=== PATIENT | male | born 1985 | race Caucasian/White ===

== ENCOUNTER → 2020-04-17 12:24 | Outpatient (CLI) | payer MEDICARE, OTHER, SELFPAY | PROVIDERS: PCP Nurse Practitioner Family; Visit Provider Nurse Practitioner Family | DX: Z03.818 Encounter for observation for suspected exposure to other biological agents ruled out (principal) | CPT/HCPCS: U0003 ==

== ENCOUNTER → 2021-04-20 14:26 | Outpatient (CLI) | payer MEDICARE, OTHER, SELFPAY | PROVIDERS: PCP Nurse Practitioner Family; Visit Provider Nurse Practitioner | DX: Z20.822 Contact with and (suspected) exposure to COVID-19 (principal) | CPT/HCPCS: C9803; U0003; U0005 ==

== ENCOUNTER → 2021-05-10 12:05 | Outpatient (CLI) | payer MEDICARE, OTHER, SELFPAY | PROVIDERS: Visit Provider Ophthalmology | DX: Z01.812 Encounter for preprocedural laboratory examination (principal); Z11.52 Encounter for screening for COVID-19 | CPT/HCPCS: C9803; U0003; U0005 ==

== ENCOUNTER 2021-05-11 07:38 | Day surgery (SDC) | payer MEDICARE, OTHER, SELFPAY ==
[2021-05-10 11:18] VITALS: BMI 40.7
[2021-05-11 08:03] VITALS: BP 146/91; PULSE 91; RESP 18; TEMP 36.2; O2SAT 94
[2021-05-11 10:08] VITALS: BP 175/81; PULSE 90; RESP 18; O2SAT 94
[2021-05-11 10:13] VITALS: BP 175/86; PULSE 88; RESP 18; O2SAT 94
[2021-05-11 10:18] VITALS: BP 163/91; PULSE 89; RESP 18; O2SAT 94
[2021-05-11 10:23] VITALS: BP 163/84; PULSE 88; RESP 18; O2SAT 94
[2021-05-11 10:25] VITALS: BP 146/87; PULSE 98; RESP 16; TEMP 36.7; O2SAT 94
[2022-02-24 10:55] LABS: POC Glucose,Bedside 259 (70-110)
== END 2021-05-11 10:33 | disposition home or self-care (01) ==
LOC: OR 07:41
PROVIDERS: PCP Nurse Practitioner Family; Visit Provider Ophthalmology
DX: H25.811 Combined forms of age-related cataract, right eye (principal); E11.9 Type 2 diabetes mellitus without complications; Z79.4 Long term (current) use of insulin; Z79.84 Long term (current) use of oral hypoglycemic drugs; Z79.899 Other long term (current) drug therapy
CPT/HCPCS: 66984; 82962; V2632

== ENCOUNTER → 2021-05-27 11:35 | Outpatient (CLI) | payer MEDICARE, OTHER, SELFPAY | PROVIDERS: Visit Provider Nurse Practitioner | DX: Z20.822 Contact with and (suspected) exposure to COVID-19 (principal) | CPT/HCPCS: C9803; U0003; U0005 ==

== ENCOUNTER 2022-05-10 10:12 | Emergency (ER) | payer MEDICARE, OTHER, SELFPAY ==
[2022-05-10] VITALS (12 sets, daily range): BP systolic 137–167; BP diastolic 78–97; PULSE 83–94; RESP 15–20; TEMP 36.8; O2SAT 94–97; BMI 29.0
--- NOTE | 2022-05-10 10:09 | ECG_ITS ---
APPROVED REPORT Exam: Resting ECG HR:92 bpm ECG Measurements Heart Rate 92 AXES LA 143 P 74 QRSd 98 QRS 34 QT 344 T 53 QTc 394 Conclusion SINUS RHYTHM NORMAL ECG UNCONFIRMED REPORT Electronically signed by : Jeffry Villarreal MD 05/10/2022 19:53:51
--- NOTE | 2022-05-10 10:24 | XR_ITS ---
FINAL REPORT TECHNIQUE: Chest PA & Lateral CLINICAL HISTORY: chest pain FINDINGS: 2 views of the chest were performed. The heart size is normal. The mediastinum is within normal limits. There is a 23 mm nodule in the left lung base. There is mild left pleural thickening. There are no pleural effusions. There is no pneumothorax. The bony thorax appears intact. IMPRESSION: 23 mm nodule in the left lung base. Uncertain if this is calcified. Recommend chest CT. Reviewed, Interpreted and Dictated by Akhil Valle III, MD Transcribed by Jewel Coker Authenticated and [facility]
[2022-05-10 10:41] LABS: Basophils # 0.1 K/mm3 (0-0.2); Basophils % 0.8 % (0.1-2.0); Chloride 104 mmol/L (98-107); Eosinophils # 0.2 K/mm3 (0.0-0.4); Eosinophils % 3.3 % (0.1-12.0); Hematocrit 45.6 % (42.0-52.0); Hemoglobin 16.2 g/dL (14.1-18.0); Lymphocytes # 1.4 K/mm3 (0.7-4.5); Lymphocytes % 18.8 % (10-50); Mean Corpuscular HGB Conc 35.4 g/dL (31.8-35.4); Mean Corpuscular Hemoglobin 31.4 pg (27.0-31.2); Mean Corpuscular Volume 88.8 fl (80-94); Mean Platelet Volume 7.8 fl (7.4-10.4); Monocytes # 0.4 K/mm3 (0.1-1.0); Monocytes % 4.9 % (1.7-9.3); Neutrophils # 5.4 K/mm3 (1.8-7.8); Neutrophils % 72.2 % (37.0-80.0); Platelet Count 218 K/mm3 (142-424); Red Blood Count 5.14 M/mm3 (4.60-6.20); Red Cell Distribution Width 13.8 % (11.5-17.5); White Blood Count 7.5 K/mm3 (4.8-10.8)
[2022-05-10 10:42] LABS: Potassium 3.8 mmoL/L (3.5-5.1); Sodium 136 mmol/L (136-145)
[2022-05-10 10:45] LABS: Anion Gap 8.8 mEq/L (5-15); Blood Urea Nitrogen 13 mg/dl (9-20); Carbon Dioxide 27 mmol/L (22.0-30.0); Creatinine Clearance Estimated 119 mL/min (50-200); Estimated Glomerular Filt Rate 84 ml/min (>60); GFR (African American) 101 ML/MIN (>60); Glucose 294 mg/dl (74-100)
--- NOTE | 2022-05-10 11:02 | CT_ITS ---
FINAL REPORT TECHNIQUE: Thin section axial CT images were obtained from the lung apices to the upper abdomen. IV contrast was administered. MIP 3-D reformats were obtained. This study was performed with techniques to keep radiation doses as low as reasonably achievable (ALARA). Individualized dose reduction techniques using automated exposure control or adjustment of mA and/or kV according to the patient's size were employed. CLINICAL HISTORY: Mass on CXR, CP, soa, former smoker of 22 years(quit 4 months ago) FINDINGS: The heart size is normal. There is no adenopathy. There is no filling defect to suggest PE. There is no aortic dissection. There is no pericardial effusion. There is left pleural thickening. There is abnormal soft tissue in the left lower thorax measuring up to 4.6 cm of uncertain etiology. Favor this to represent scarring. There is a 26 mm lobular nodule in the inferior lingula that is not calcified. Neoplasm cannot be excluded. There are mild bilateral pulmonary ground-glass opacities that could represent edema or alveolitis. No pleural effusion. Limited images of the upper abdomen demonstrate a 6 mm increased attenuation focus in the medial left hepatic lobe that is nonspecific. There is mild fatty infiltration of the liver. Postoperative changes are seen from cholecystectomy. IMPRESSION: Noncalcified 26 mm lobular nodule in the inferior lingula. Neoplasm cannot be excluded. Recommend PET-CT. Mild bilateral pulmonary ground-glass opacities could represent edema or alveolitis. Abnormal soft tissue in the left lower thorax favors scarring. Reviewed, Interpreted and Dictated by Akhil Valle III, MD Transcribed by Jewel Coker Authenticated and [facility]
[2022-05-10 11:03] LABS: Troponin I < 0.01 ng/ml (0.00-0.034)
--- NOTE | 2022-05-10 11:03 | HMH.EDGENADL ---
Discharge Plan Disposition Patient Disposition: Home, Self-Care Condition: Good Prescriptions Prescriptions: New azithromycin [Zithromax Z-Luis] 250 mg tablet See Rx Instructions PO .COMPLEX Qty: 6 0RF Rx Instructions: For 250 mg dose pack: take 500 mg today (day 1), then 250 mg for 4 days (days 2-5) No Action pravastatin 40 MG tablet 40 mg PO HS divalproex 500 MG tablet,delayed release (DR/EC) 500 mg PO BID citalopram 20 MG tablet 20 mg PO DAILY metformin 1,000 MG tablet 1,000 mg PO BID topiramate 100 MG tablet 100 mg PO DAILY aripiprazole 20 MG tablet 20 mg PO DAILY bupropion HCl 150 MG tablet extended release 24 hr 150 mg PO DAILY insulin detemir U-100 100 UNIT/ML solution 48 unit SQ DAILY empagliflozin 25 MG tablet 25 mg PO DAILY Referrals Follow up/Referrals: Fransisca Bonilla MD [Physician] - See instructions Crystal White APRN [Primary Care Provider] - See instructions Activity Restrictions/Add. Instructions Additional Instructions/Restrictions: Zithromax as prescribed. [id number] ibuprofen or Tylenol for pain. Follow-up with Dr. Bonilla, retail assistant, [facility] for appointment, for further evaluation of lung nodule found on x-ray and CT scan. follow-up with Crystal White on as scheduled. Clinical Impressions Clinical Impression: Atypical chest pain, Pulmonary alveolitis, Pulmonary nodule Instructions Patient Instructions: DI for Atypical Chest Pain, DI for Pulmonary Nodule Discharge ED Provider: John Villalta General Adult HPI General Chief complaint: Chest Pain Stated complaint: chest pain Time Seen by Provider: 05/10/22 10:55 Mode of Arrival: Ambulatory Source of Information: Patient Limitations: No Limitations Description of Symptoms (Recalled from ER Triage Doc. by RN): pt to ed c/o intermittent center chest pain. pt reports he has had episodes of chest pain x5 days. pt denies any other symptoms associated. History of Present Illness HPI narrative: Patient states he has had chest pain for 3 to 4 days in the center of his chest. It is intermittent and lasts about 10 minutes per episode. When he gets the pain he has shortness of breath and painful breathing, but he has neither of these when the pain is not present. He has cough producing some clear sputum. Denies fever. Denies hemoptysis. He has had some vomiting and diarrhea for a couple of days. Denies previous similar pain. He has no known cardiac or pulmonary problems. He is a former smoker, states he quit 4 months ago. No leg pain or swelling. Related Data Home Medications Medication Instructions Recorded Confirmed aripiprazole 20 mg tablet 20 mg PO DAILY * 05/10/21 05/11/21 bupropion HCl 150 mg 24 hr tablet, 150 mg PO DAILY depression\ 05/10/21 05/11/21 extended release citalopram 20 mg tablet 20 mg PO DAILY Depression 05/10/21 05/11/21 divalproex 500 mg tablet,delayed 500 mg PO BID paranoid schizo 05/10/21 05/11/21 release empagliflozin 25 mg tablet 25 mg PO DAILY Diabetes 05/10/21 05/11/21 insulin detemir U-100 100 unit/mL 48 unit SQ DAILY Diabetes 05/10/21 05/11/21 subcutaneous solution metformin 1,000 mg tablet 1,000 mg PO BID Diabetes 05/10/21 05/11/21 pravastatin 40 mg tablet 40 mg PO HS Cholesterol 05/10/21 05/11/21 topiramate 100 mg tablet 100 mg PO DAILY * 05/10/21 05/11/21 Previous Rx's Medication Instructions Recorded azithromycin 250 mg tablet See Rx Instructions PO .COMPLEX #6 05/10/22 (Zithromax Z-Luis) tabs Allergies Allergy/AdvReac Type Severity Reaction Status Date / Time From EAR DROPS Allergy Mild Uncoded 05/16/17 14:51 INGREDIENT: NO KNOWN - NO Allergy Unknown Uncoded 05/16/17 14:51 KNOWN DRUG ALLERGY [facility] Disclaimer: The information contained in this section may have been updated after the patient was seen, as this information can be updated by other users. Social History
--- NOTE | 2022-05-10 11:19 | PC.NURSE ---
pt ambulating over for CT
--- NOTE | 2022-05-10 11:21 | PC.NURSE ---
Rounded on patient; Patient is lying on ED stretcher with no needs at this time. SO at BS. Call light within reach. They are aware that we are waiting on imaging reports and labs to result.
--- NOTE | 2022-05-10 12:50 | PC.NURSE ---
updated patient on POC; Dr. aggarwal would like a 2nd troponin when its due.
[2022-05-10 13:39] LABS: POC Glucose,Bedside 222 (70-110)
[2022-05-10 13:43] LABS: Coronavirus 19, PCR Not Detected (NotDetected); Influenza A, PCR Not Detected (NotDetected); Influenza B, PCR Not Detected (NotDetected)
--- NOTE | 2022-05-10 14:04 | PC.NURSE ---
pt given ice water, SO at BS. No other needs at this time
[2022-05-10 14:05] LABS: Troponin I 0.01 ng/ml (0.00-0.034)
--- NOTE | 2022-05-10 14:16 | PC.NURSE ---
SHAD ACKERMAN at to update pt on POC
== END 2022-05-10 14:39 | disposition home or self-care (01) ==
PROVIDERS: Emergency Provider Emergency Medicine; PCP Nurse Practitioner Family
DX: R07.89 Other chest pain (principal); J67.9 Hypersensitivity pneumonitis due to unspecified organic dust; R91.1 Solitary pulmonary nodule; Z87.891 Personal history of nicotine dependence
CPT/HCPCS: 71046; 71275; 80048; 82962; 84484; 85025; 93005; 99285; C9803; Q9967; U0003; U0005

== ENCOUNTER 2024-12-17 10:28 | Outpatient (CLI) | payer MEDICARE, MEDICAID, SELFPAY ==
--- NOTE | 2024-12-17 10:30 | US_ITS ---
FINAL REPORT TECHNIQUE: Ultrasound images of the kidneys and bladder were obtained. CLINICAL HISTORY: CKD STAGE 2 FINDINGS: The right kidney measures 12.8 cm in length. It is normal in echogenicity. There is no hydronephrosis. The left kidney measures 12.2 cm in length. It is normal in echogenicity. There is no hydronephrosis. There are fatty changes to the liver. IMPRESSION: Fatty liver. Reviewed, Interpreted and Dictated by Ankush Anderson MD Transcribed by Domitila Armstrong Authenticated and [facility]
== END 2024-12-17 23:59 | disposition home or self-care (01) ==
LOC: RAD 10:28
PROVIDERS: PCP Nurse Practitioner Family; Visit Provider Nurse Practitioner Family
DX: K76.0 Fatty (change of) liver, not elsewhere classified (principal); N18.2 Chronic kidney disease, stage 2 (mild)
CPT/HCPCS: 76770